=== PATIENT | female | born 1990 | race Asian ===

== ENCOUNTER 2018-07-20 12:42 | Emergency (ER) | payer SELFPAY ==
[~2018-07-20] VITALS: Ht 149.9 cm; Wt 65.8 kg
[2018-07-20 13:19] LABS: BILIRUBIN,URINE NEGATIVE (NEG); CLARITY,URINE CLEAR; COLOR,URINE YELLOW; NITRITE,URINE NEGATIVE (NEG); PH,URINE 6.5; PROTEIN,URINE NEGATIVE (NEG-TRACE); UROBILINOGEN,URINE 0.2 mg/dL (0.2 mg/dL)
[2018-07-20 13:30] LABS: BACTERIA,URINE 0 /HPF (0-FEW); RBC,URINE 20-40 /HPF (0-2); SQUAMOUS EPITHELIAL CELL,UR FEW /LPF; WBC,URINE 0 /HPF (0-4)
[2018-07-20] MEDS ORDERED: ONDANSETRON PF 4 MG/2 ML VIAL. IV ONE (13:30)
[2018-07-20] MEDS ORDERED: FAMOTIDINE 20 MG/2 ML VIAL IVP ONE (13:30)
[2018-07-20 14:03] LABS: BASO # 0.1 x10^3/uL (0.0-0.2); BASO % 1 % (0-3); EOS # 0.2 x10^3/uL (0.0-0.7); EOS % 2 % (0-3); HEMATOCRIT 43.4 % (36.0-47.0); HEMOGLOBIN 14.8 g/dL (12.0-15.5); LYMPH # 1.6 x10^3/uL (1.0-4.8); LYMPH % 17 % (24-48); MEAN CORPUSCULAR HEMOGLOBIN 29 pg (25-35); MEAN CORPUSCULAR HGB CONC 34 g/dL (31-37); MEAN CORPUSCULAR VOLUME 86 fL (79-100); MONO # 0.7 x10^3/uL (0.0-1.1); MONO % 7 % (0-9); NEUT # 6.9 x10^3uL (1.8-7.7); NEUT % 73 % (31-73); PLATELET COUNT 266 x10^3/uL (140-400); RED BLOOD COUNT 5.07 x10^6/uL (3.50-5.40); RED CELL DISTRIBUTION WIDTH 13.4 % (11.5-14.5); WHITE BLOOD COUNT 9.5 x10^3/uL (4.0-11.0)
--- NOTE | 2018-07-20 14:04 | RAD ---
Examination: Ultrasound abdomen limited HISTORY: History of upper abdominal pain, nausea COMPARISON: None available FINDINGS: The visualized pancreas grossly appears unremarkable. The echogenicity liver grossly appears unremarkable. No evidence of gallstones identified. The right kidney measures 9.3 cm in length. The common bile duct measures 4.1 mm in diameter. Visualized IVC is within normal limits of dimension. IMPRESSION: Unremarkable exam. Electronically signed by: Mckay Vanegas MD (07/20/2018 2:00 PM) [facility]
[2018-07-20 14:11] LABS: CALCIUM 9.4 mg/dL (8.5-10.1); CREATININE 0.9 mg/dL (0.6-1.0); GFR 76.3; POTASSIUM 4.6 mmol/L (3.5-5.1)
[2018-07-20 14:32] LABS: ALBUMIN 3.8 g/dL (3.4-5.0); DIRECT BILIRUBIN 0.1 mg/dL (0.0-0.2); TOTAL BILIRUBIN 0.4 mg/dL (0.2-1.0); TOTAL PROTEIN 8.3 g/dL (6.4-8.2)
[2018-07-20 14:48] VITALS: BP 108/73
[2018-07-20] MEDS ORDERED: RANI150T21 PO (15:04)
--- NOTE | 2018-07-20 15:06 | PHYS DOC ---
Past Medical History Past Medical History: No Pertinent History Past Surgical History: No Surgical History Alcohol Use: Occasionally Drug Use: None Adult General Chief Complaint Chief Complaint: ABDOMINAL PAIN HPI HPI Patient is a 27 year old female who presents with upper abdominal pain. Patient had onset of symptoms last evening. They did occur while she was eating food. She woke this morning and had continued intermittent pain which she describes to be sharp and sometimes stabbing in nature. Pain is over the epigastrium and sometimes over the right side of her upper abdomen. She had some nausea but no vomiting. Her pain was worse earlier this morning when she states she was doubled over because it was so bad. Upon coming to the ER, her pain had started to improve. No recent fevers or chills. No urinary symptoms. She is currently on her menstrual cycle. Review of Systems Review of Systems Constitutional: Denies fever or chills Eyes: Denies change in visual acuity HENT: Denies nasal congestion Respiratory: Denies cough or shortness of breath Cardiovascular: No additional information not addressed in HPI GI: Denies abdominal pain, nausea, vomiting, bloody stools or diarrhea : Denies dysuria or hematuria Musculoskeletal: Denies back pain Integument: Denies rash or skin lesions Neurologic: Denies headache All other systems were reviewed and found to be within normal limits, except as documented in this note. Current Medications Current Medications Current Medications Medications (Trade) Dose Ordered Sig/Avelino Start Time Stop Time Status Last Admin Dose Admin Famotidine (Pepcid Vial) 20 mg 1X ONCE 07/20/18 13:30 07/20/18 13:55 DC Ondansetron HCl (Zofran) 4 mg 1X ONCE 07/20/18 13:30 07/20/18 13:55 DC Allergies Allergies Allergies Coded Allergies Type Severity Reaction Last Updated Verified ibuprofen Allergy Intermediate HIVES 07/20/18 Yes Physical Exam Physical Exam Constitutional: Well developed, well nourished, no acute distress, non-toxic appearance HENT: Normocephalic, atraumatic, bilateral external ears normal, oropharynx moist Eyes: PERRLA, EOMI, conjunctiva normal Neck: Normal range of motion, no tenderness Cardiovascular:Heart rate regular rhythm, no murmur Lungs & Thorax: Bilateral breath sounds clear to auscultation Abdomen: mildly TTP over the epigastrium and right upper quadrant but no guarding or rebound. Normal bowel sounds. Abdomen is soft otherwise Skin: Warm, dry, no erythema, no rash Extremities: No tenderness Neurologic: Alert and oriented X 3 Psychologic: Affect normal Current Patient Data Vital Signs Vital Signs Date Time Temp Pulse Resp B/P (MAP) Pulse Ox O2 Delivery O2 Flow Rate FiO2 07/20/18 14:48 61 108/73 (85) 97 Room Air 07/20/18 13:51 16 07/20/18 12:45 99.2 99.2 Lab Values Laboratory Tests Test 07/20/18 12:55 07/20/18 13:11 07/20/18 13:53 Urine Collection Type Unknown Urine Color Yellow Urine Clarity Clear Urine pH 6.5 Urine Specific Bazine >=1.030 Urine Protein Negative mg/dL (NEG-TRACE) Urine Glucose (UA) Negative mg/dL (NEG) Urine Ketones (Stick) Negative mg/dL (NEG) Urine Blood Large (NEG) Urine Nitrite Negative (NEG) Urine Bilirubin Negative (NEG) Urine Urobilinogen Dipstick 0.2 mg/dL (0.2 mg/dL) Urine Leukocyte Esterase Negative (NEG) Urine RBC 20-40 /HPF (0-2) Urine WBC 0 /HPF (0-4) Urine Squamous Epithelial Cells Few /LPF Urine Bacteria 0 /HPF (0-FEW) POC Urine HCG, Qualitative Hcg negative (Negative) White Blood Count 9.5 x10^3/uL (4.0-11.0) Red Blood Count 5.07 x10^6/uL (3.50-5.40) Hemoglobin 14.8 g/dL (12.0-15.5) Hematocrit 43.4 % (36.0-47.0) Mean Corpuscular Volume 86 fL (79-100) Mean Corpuscular Hemoglobin 29 pg (25-35) Mean Corpuscular Hemoglobin Concent 34 g/dL (31-37) Red Cell Distribution Width 13.4 % (11.5-14.5) Platelet Count 266 x10^3/uL (140-400) Neutrophils (%) (Auto) 73 % (31-73) Lymphocytes (%) (Auto) 17 % (24-48) L Monocytes (%) (Auto) 7 % (0-9) Eosinophils (%) (Auto) 2 % (0-3) Basophils (%) (Auto) 1 % (0-3) Neutrophils # (Auto) 6.9 x10^3uL (1.8-7.7) Lymphocytes # (Auto) 1.6 x10^3/uL (1.0-4.8) Monocytes # (Auto) 0.7 x10^3/uL (0.0-1.1) Eosinophils # (Auto) 0.2 x10^3/uL (0.0-0.7) Basophils # (Auto) 0.1 x10^3/uL (0.0-0.2) Sodium Level 141 mmol/L (136-145) Potassium Level 4.6 mmol/L (3.5-5.1) Chloride Level 104 mmol/L (98-107) Carbon Dioxide Level 29 mmol/L (21-32) Anion Gap 8 (6-14) Blood Urea Nitrogen 10 mg/dL (7-20) Creatinine 0.9 mg/dL (0.6-1.0) Estimated GFR (Cockcroft-Gault) 76.3 Glucose Level 91 mg/dL (70-99) Calcium Level 9.4 mg/dL (8.5-10.1) Total Bilirubin 0.4 mg/dL (0.2-1.0) Direct Bilirubin 0.1 mg/dL (0.0-0.2) Aspartate Amino Transferase (AST) 12 U/L (15-37) L Alanine Aminotransferase (ALT) 19 U/L (14-59) Alkaline Phosphatase 76 U/L (46-116) Total Protein 8.3 g/dL (6.4-8.2) H Albumin 3.8 g/dL (3.4-5.0) Lipase 89 U/L (73-393) Laboratory Tests 07/20/18 13:53 Laboratory Tests 07/20/18 13:53 EKG EKG [] Radiology/Procedures Radiology/Procedures US of RUQ: no acute findings. Course & Med Decision Making Course & Med Decision Making Pertinent Labs and Imaging studies reviewed. (See chart for details) Patient was evaluated in the emergency department for abdominal pain. Her pain was improving prior to arrival in the ER but she does describe some severe pain at home. Her physical exam was positive only for some mild tenderness to palpation over the epigastric area and right upper quadrant. Ultrasound was completed but the gallbladder was normal. The patient was given 1 dose of Zofran and 1 dose of Pepcid in the emergency department. Her pain symptoms continued to improve. After all results had returned, I reexamined the patient and she had a benign abdominal exam. She was subjectively improved. I discussed the option of pursuing CT scan versus discharge home and return to the ER with worsening symptoms. The patient did not desire CT scan today. She was discharged to home. She was advised to come back to the ER for any new or worsening symptoms immediately. If the patient should re-visit the ER in the next day or 2, she should undergo CT scan of the abdomen pelvis. Of note, her urinalysis did have blood but the patient is currently on her menstrual cycle. Dragon Disclaimer Dragon Disclaimer This electronic medical record was generated, in whole or in part, using a voice recognition dictation system. Departure Departure Impression: Primary Impression: Gastritis Disposition: 01 HOME, SELF-CARE Condition: GOOD Patient Instructions: Gastritis, Adult, [id number] Scripts Ranitidine Hcl (ZANTAC) 150 Mg Tablet 1 TAB PO BID, #20 TAB 0 Refills Prov: GASTON PHELAN DO 07/20/18 GASTON PHELAN DO Jul 20, 2018 15:06
== END 2018-07-20 15:10 | disposition home or self-care (01) ==
LOC: ER 12:42
DX: K29.60 Other gastritis without bleeding (principal); Z88.6 Allergy status to analgesic agent
CPT/HCPCS: 36415; 76705; 80048; 80076; 81001; 81025; 83690; 85025; 99284-25